=== PATIENT | male | born 1995 | race American Indian/Alaskan Native ===

== ENCOUNTER 2017-11-05 12:18 | Emergency (ER) | payer MEDICAID, OTHER ==
[2017-11-05 12:44] VITALS: RESP 18; TEMP 98.3
[2017-11-05] MEDS ORDERED: Bupivacaine 0.5% Inj(30mL) IJ STA (12:59)
[2017-11-05] MEDS ORDERED: Sodium Chloride 0.9% 500 ML IV STA (13:04)
--- NOTE | 2017-11-05 13:04 | ED PDOC ---
Arrival/HPI - General Chief Complaint: Dental Pain Time Seen by Provider: 11/05/17 12:25 Historian: Patient - History of Present Illness Narrative History of Present Illness (Text): 11/05/17 13:01 This 21 yo male with a pmh dental caries, presents to this ED c/o right upper toothache x 3 days. Patient stated right sided of his face started swelling x 2 days ago. Patient stated swelling has worsen this morning. Patient denies fever, sore throat, sob, cp, dizziness, abdominal pain, or abnormal gait. Time/Duration: Other (see hpi) Context: Home Past Medical History - Provider Review Nursing Documentation Reviewed: Yes - Infectious Disease Hx of Infectious Diseases: None - Tetanus Immunization Tetanus Immunization: Unknown - Psychiatric Hx Depression: No Hx Emotional Abuse: No Hx Physical Abuse: No Hx Substance Use: Yes - Surgical History Hx Orthopedic Surgery: Yes Other/Comment: R wrist surgery - Anesthesia Hx Anesthesia: Yes Hx Anesthesia Reactions: No Hx Malignant Hyperthermia: No - Suicidal Assessment Feels Threatened In Home Enviroment: No Family/Social History - Physician Review Nursing Documentation Reviewed: Yes Family/Social History: Other (noncontributory) Smoking Status: black&mild Hx Alcohol Use: Yes Frequency of alcohol use: Socially Hx Substance Use: Yes Substance used: marijuana Hx Substance Use Treatment: No Allergies/Home Meds Allergies/Adverse Reactions: Allergies No Known Allergies Allergy (Verified 02/26/14 14:25) Review of Systems - Review of Systems Constitutional: Normal. absent: Fatigue, Weight Change, Fevers Eyes: Normal ENT: Other (right upper tooth pain, and right facial swelling). absent: Sore Throat, Rhinorrhea Respiratory: Normal. absent: SOB, Wheezing Cardiovascular: Normal. absent: Chest Pain Gastrointestinal: Normal. absent: Abdominal Pain, Nausea, Vomiting Genitourinary Male: Normal. absent: Dysuria Musculoskeletal: Normal Skin: Normal Neurological: Normal Endocrine: Normal Hemo/Lymphatic: Normal Psychiatric: Normal Physical Exam Vital Signs Temp Pulse Resp BP Pulse Ox 11/05/17 16:52 104 H 18 138/76 100 11/05/17 12:43 98.3 F 115 H 18 141/94 H 96 Temperature: Afebrile Blood Pressure: Normal Pulse: Regular Respiratory Rate: Normal Appearance: Positive for: Well-Appearing, Non-Toxic, Comfortable Pain Distress: None Mental Status: Positive for: Alert and Oriented X 3 - Systems Exam Head: Present: Atraumatic, Normocephalic Pupils: Present: PERRL Extroacular Muscles: Present: EOMI Conjunctiva: Present: Normal Mouth: Present: Moist Mucous Membranes, Normal Lips, Normal Tounge, Other ((+) Right upper molar gum mild swollen. (+) right facial swelling. No cellulitis) . No: Drooling, Trismus Neck: Present: Normal Range of Motion Respiratory/Chest: Present: Clear to Auscultation, Good Air Exchange. No: Respiratory Distress, Accessory Muscle Use Cardiovascular: Present: Regular Rate and Rhythm, Normal S1, S2. No: Murmurs Back: Present: Normal Inspection Upper Extremity: Present: Normal Inspection, Normal ROM. No: Cyanosis, Edema Lower Extremity: Present: Normal Inspection, Normal ROM. No: Edema Neurological: Present: GCS=15, CN II-XII Intact, Speech Normal, Motor Func Grossly Intact, Normal Sensory Function, Normal Cerebellar Funct, Gait Normal, Memory Normal Skin: Present: Warm, Dry, Normal Color, Other (see ENT). No: Rashes Psychiatric: Present: Alert, Oriented x 3, Normal Insight, Normal Concentration Medical Decision Making ED Course and Treatment: 11/05/17 16:19 Patient feels better. Re-evaluation. Patient feels better. Discussed results and plan with patient who expresses understanding. All questions answered and there is agreement with the plan to discharge home with instructions. Patient stable for discharge. Return if symptoms persist or worsen. Re-evaluation Time: 16:19 Reassessment Condition: Re-examined, Improved - Medication Orders Current Medication Orders: Discontinued Medications Bupivacaine HCl (Marcaine 0.5%) 2 ml IJ STAT STA Stop: 11/05/17 13:00 Last Admin: 11/05/17 13:24 Dose: 2 ml Diphenhydramine HCl (Benadryl) 50 mg IVP STAT STA Stop: 11/05/17 15:16 Last Admin: 11/05/17 15:27 Dose: 50 mg IVP Administration Document 11/05/17 15:27 EQ (Rec: 11/05/17 15:27 EQ [id number]) Charges for Administration # of IVP Administrations 1 Clindamycin Phosphate 900 mg/ (Sodium Chloride) 106 mls @ 106 mls/hr IVPB STAT STA PRN Reason: Protocol Stop: 11/05/17 13:58 Last Admin: 11/05/17 14:05 Dose: 106 mls/hr eMAR Start Stop Document 11/05/17 14:05 EQ (Rec: 11/05/17 14:05 EQ [id number]) Intravenous Solution Start Date 11/05/17 Start Time 14:05 Sodium Chloride (Sodium Chloride 0.9%) 500 mls @ 999 mls/hr IV .Q31M STA Stop: 11/05/17 13:34 Last Admin: 11/05/17 13:24 Dose: 999 mls/hr eMAR Start Stop Document 11/05/17 13:24 EQ (Rec: 11/05/17 13:24 EQ [id number]) Intravenous Solution Start Date 11/05/17 Start Time 13:24 Ketorolac Tromethamine (Toradol) 30 mg IVP STAT STA Stop: 11/05/17 13:01 Last Admin: 11/05/17 13:25 Dose: 30 mg MAR Pain Assessment Document 11/05/17 13:25 EQ (Rec: 11/05/17 13:25 EQ [id number]) Pain Reassessment Is this a pain reassessment? No Sleep Is patient sleeping during reassessment? No Presence of Pain Presence of Pain Yes IVP Administration Document 11/05/17 13:25 EQ (Rec: 11/05/17 13:25 EQ [id number]) Charges for Administration # of IVP Administrations 1 Metoclopramide HCl (Reglan) 10 mg IVP STAT STA Stop: 11/05/17 15:15 Last Admin: 11/05/17 15:27 Dose: 10 mg IVP Administration Document 11/05/17 15:27 EQ (Rec: 11/05/17 15:28 EQ [id number]) Charges for Administration # of IVP Administrations 1 Disposition/Present on Arrival - Present on Arrival Any Indicators Present on Arrival: No History of DVT/PE: No History of Uncontrolled Diabetes: No Urinary Catheter: No History of Decub. Ulcer: No History Surgical Site Infection Following: None - Disposition Have Diagnosis and Disposition been Completed?: Yes Diagnosis: Dental abscess Disposition: HOME/ ROUTINE Disposition Time: 16:19 Patient Plan: Discharge Condition: GOOD Discharge Instructions (ExitCare): Tooth Abscess (DC) Additional Instructions: Call private Dentist for follow up visit in 1-2 days. Take medication as instructed with food. Return to emergency if symptoms worsen. You may want to try dental clinic at [facility] in [place], or [facility] in [facility]. They both have a dental clinic if you don't have private dentist. Do not drive or operate machinery if you take take Vicodin. Prescriptions: Acetaminophen/Hydrocodone Bi [Vicodin 300 mg-5 mg] 1 tab PO Q4H PRN #10 tab PRN Reason: Pain, Severe (8-10) Chlorhexidine 0.12% [Peridex] 15 ml PO BID #1 bottle Clindamycin [Cleocin] 300 mg PO QID #40 cap Ibuprofen [Motrin] 600 mg PO Q8 PRN #20 tab PRN Reason: Pain, Severe (8-10) Referrals: [facility] [Outside] - Follow up with primary [facility] [Outside] - Follow up with primary Forms: [facility] (Spanish), WORK NOTE
[2017-11-05] MEDS ORDERED: DiphenhydrAMINE 50 mg/ml Inj IVP STA (15:15)
[2017-11-05 16:53] VITALS: BP 138/76; PULSE 104; O2SAT 100
== END 2017-11-05 17:10 | disposition home or self-care (01) ==
LOC: ED 12:18
DX: K04.7 Periapical abscess without sinus (principal)
CPT/HCPCS: 96374; 96375; 99282; J1200; J1885; J2765; J7040